=== PATIENT | female | born 1985 | race Caucasian/White ===

== ENCOUNTER 2017-11-22 16:24 | Emergency (ER) | payer SELFPAY ==
[2017-11-22 16:30] VITALS: BP 118/65; BMI 25.6
--- NOTE | 2017-11-22 18:03 | DR.GENAD ---
HPI - Complaint/Symptoms Chief Complaint Doctors Comments: patient states that she had been having aches , and intermittent fever for one week. Her throat is hurting and ear hurs s/p swallowing. Chief Complaint:: "ear and throat hurting for a week" - Source History Provided: Patient - Mode of Arrival Mode of Arrival: Ambulatory - Timing Onset of Chief Complaint: 11/15/17 PMH - PMH Past Medical History: No Past Surgical History: Yes Surgical History: Past Surgical History Comment: c section, D/C - Family History History of Family Medical Conditions: Yes Family Medical History: Diabetes Mellitus, Heart Failure, Hypertension - Social History Does patient currently use any type of tobacco product: No Have you used tobacco products in the last 12 months: No Type of Tobacco Use: None Does any household member use tobacco: No Alcohol Use: None Do you use any recreational Drugs:: No Lives With: Family Lives Where: Home - infectious screening In the last 2 months have you had wt loss of >10#?: NO Have you had fever, night sweats or hemotysis?: No Have you traveled outside the country in the last 6 months?: No Isolation: Standard ROS - Review of Systems Eyes: No Symptoms Reported ENTM: No Symptoms Reported Respiratoy: No Symptoms Reported Cardiovascular: No Symptoms Reported Gastrointestinal/Abdominal: No Symptoms Reported Genitourinary: No Symptoms Reported Neurological: No Symptoms Reported Musculoskeletal: No Symptoms Reported Integumentary: No Symptoms Reported Hematologic/Lymphatic: No Symptoms Reported Endocrine: No Symptoms Reported Psychiatric: No Symptoms Reported All Other Systems: Reviewed and Negative PE - Vital Signs Vitals: Temperature 98.5 F Pulse Rate 86 Respiratory Rate 18 Blood Pressure 118/65 O2 Sat by Pulse Oximetry 100 - General General Appearance: Alert, In No Apparent Distress - Head Head Exam: Normal Inspection, Atraumatic - Eyes Eye exam: Normal Appearance, PERRL, EOMI - ENT ENT Exam: Normal Exam External Ear Exam: Normal External Inspection TM/Canal Exam: Bilateral Normal Nose Exam: Normal Nose Exam Mouth Exam: Normal Inspection Throat Exam: Normal Inspection, Tonsillar Erythema - Neck Neck Exam: Normal Inspection, Full ROM, Tenderness (bilateral tonsils) - Chest Chest Inspection: Normal Inspection - Respiratory Respiratory Exam: Normal Lung Sounds Bilat Respiratory Exam: Bilateral Clear to Auscultation - Cardiovascular Cardiovascular Exam: Regular Rate, Normal Rhythm - Abdominal Exam Abdominal Exam: Normal Inspection, Normal Bowel Sounds, Guarding. negative: Tenderness, Rebound, Pulsatile Mass Abdominal Tenderness: negative: RUQ, RLQ, LUQ, LLQ, Epigastrium, Suprapubic, Diffuse, Mild, Moderate, Severe, Other - Extremities Extremities Exam: Normal Inspection, Full ROM - Back Back Exam: Normal Inspection, Full ROM - Neurologic Neurological Exam: Alert, Oriented X3, CN II-XII Intact - Psychiatric Psychiatric Exam: Normal Affect - Skin Skin Exam: Warm, Dry, Intact Course - Reevaluation 1st: Unchanged ROR - Labs Reviewed Laboratory Results Reviewed?: Yes (influenza neg, strep negative) Laboratory: Influenza Type A (PCR) Negative (NEGATIVE) 11/22/17 18:05 Influenza Type B (PCR) Negative (NEGATIVE) 11/22/17 18:05 S. pyogenes (TEM-PCR) Not detected (NOT DETECT) 11/22/17 18:05 - Diagnosis Discharge Problem: Upper respiratory infection Qualifiers: URI type: unspecified viral URI Qualified Code(s): J06.9 - Acute upper respiratory infection, unspecified - Discharge Plan Condition: Stable - Follow ups/Referrals Follow ups/Referrals: NFD,None [Primary Care Provider] - 3 days - Instructions
== END 2017-11-22 19:27 | disposition home or self-care (01) ==
LOC: ER 16:33
DX: J06.9 Acute upper respiratory infection, unspecified (principal)
CPT/HCPCS: 87502; 87651; 99282

== ENCOUNTER 2018-01-17 11:11 | Emergency (ER) | payer SELFPAY ==
[2018-01-17 11:16] VITALS: BP 114/71; BMI 24.7
--- NOTE | 2018-01-17 11:43 | DR.NAUSEAF ---
HPI - Time Seen Time seen: 11:40 - Primary Care Physician Primary Care Physician: MENDY - HPI Comment HPI Comment: GETTING WORSE. - Complaints Chief Complaint Doctors Comments: N/V ANOREXIA AND THROAT PAIN TIMES ONE DAY. Chief Complaint:: NAUSEA AND VOMITING. NOT ABLE TO EAT AND THROAT HURTING - Reviewed Nurses Notes Reviewed: Yes - Source History Provided: Patient - Mode of Arrival Mode of Arrival: Ambulatory - Timing Onset of Chief Complaint: 01/16/18 - Context Onset: Spontaneous Recent: None : No History of: None - Quality Quality: Bilious - Associated Signs and Symptoms Abdominal Pain Location: Diffuse Symptoms: Abdominal Pain PMH - PMH Past Medical History: No Past Surgical History: Yes Surgical History: Past Surgical History Comment: DNC - Family History History of Family Medical Conditions: Yes Family Medical History: Diabetes Mellitus, Heart Failure, Hypertension - Social History Does any household member use tobacco: Yes Alcohol Use: None Do you use any recreational Drugs:: No Lives With: Other Lives Where: Home - infectious screening In the last 2 months have you had wt loss of >10#?: NO Have you had fever, night sweats or hemotysis?: No Have you traveled outside the country in the last 6 months?: No Isolation: Standard ROS - Review of Systems Constitutional: No Symptoms Reported Eyes: No Symptoms Reported ENTM: Throat Pain. negative: Ear Pain, Nose Discharge, Nose Congestion Respiratoy: No Symptoms Reported Cardiovascular: No Symptoms Reported Gastrointestinal/Abdominal: Diarrhea, Nausea, Vomiting Genitourinary: No Symptoms Reported Neurological: No Symptoms Reported Musculoskeletal: No Symptoms Reported Integumentary: No Symptoms Reported Hematologic/Lymphatic: No Symptoms Reported Endocrine: No Symptoms Reported All Other Systems: Reviewed and Negative PE - Vital Signs Vitals: Temperature 98.3 F Pulse Rate 70 Respiratory Rate 20 Blood Pressure 114/71 O2 Sat by Pulse Oximetry 100 - General Limitations: No Limitations General Appearance: Alert - Head Head Exam: Normal Inspection - Eyes Eye exam: Normal Appearance - ENT ENT Exam: Normal External Ear Exam - Neck Neck Exam: Normal Inspection - Chest Chest Inspection: Symmetric Chest Wall Rise - Respiratory Respiratory Exam: Normal Lung Sounds Bilat Respiratory Exam: Bilateral Clear to Auscultation - Cardiovascular Cardiovascular Exam: Regular Rate, Normal Rhythm, Normal Heart Sounds - Abdominal Exam Abdominal Exam: Normal Bowel Sounds, Soft. negative: Tenderness - Rectal Rectal Exam: Deferred - External Exam: Female: Deferred : Speculum Exam (Female): Deferred : Bimanual Exam (female): Deferred - Back Back Exam: Normal Inspection - Neurologic Neurological Exam: Alert, Oriented X3 - Psychiatric Psychiatric Exam: Normal Affect, Normal Mood - Skin Skin Exam: Normal Color MDM - Differential Diagnosis Differential Diagnosis: Considerations may Include:: Bowel Obstruction, Gastroenteritis, Urinary Tract Infection, Urolithiasis Course - Treatment Treatment: SEE ORDERS. - Education/Counseling Education/Counseling: Patient, Education Educated On: Diagnosis, Needs for Follow Up ROR - Labs Reviewed Laboratory Results Reviewed?: Yes Result Diagrams: 01/17/18 11:56 01/17/18 11:56 Laboratory: WBC 6.7 X10^3/uL (3.6-10.0) 01/17/18 11:56 RBC 4.14 X10^6/uL (3.5-5.4) 01/17/18 11:56 Hgb 11.0 g/dL (12.0-16.0) L 01/17/18 11:56 Hct 32.8 % (36.0-47.0) L 01/17/18 11:56 MCV 79.3 fL (80.0-100.0) L 01/17/18 11:56 MCH 26.5 pg (27.0-34.0) L 01/17/18 11:56 MCHC 33.4 g/dL (33.0-35.0) 01/17/18 11:56 RDW 13.9 % (11.6-16.5) 01/17/18 11:56 Plt Count 299 X10^3/uL (150.0-450.0) 01/17/18 11:56 MPV 7.6 fL (7.4-11.0) 01/17/18 11:56 Neut % (Auto) 52.7 % (42.0-75.0) 01/17/18 11:56 Lymph % (Auto) 37.1 % (21.0-51.0) 01/17/18 11:56 [place] % (Auto) 8.3 % (0.0-13.0) 01/17/18 11:56 Eos % (Auto) 1.3 % (0.9-2.9) 01/17/18 11:56 Baso % (Auto) 0.6 % (0.2-1.0) 01/17/18 11:56 Neut # (Auto) 3.5 x10^3/uL (2.2-4.8) 01/17/18 11:56 Lymph # (Auto) 2.5 X10^3/uL (1.3-2.9) 01/17/18 11:56 [place] # (Auto) 0.5 x10^3/uL (0.3-0.8) 01/17/18 11:56 Eos # (Auto) 0.1 x10^3/uL (0.0-0.2) 01/17/18 11:56 Baso # (Auto) 0.0 X10^3/uL (0.0-0.1) 01/17/18 11:56 Absolute Nucleated RBC 0.0 /100WBC 01/17/18 11:56 Sodium 140 mmol/L (136-145) 01/17/18 11:56 Corrected Sodium TNP 01/17/18 11:56 Potassium 3.8 mmol/L (3.5-5.1) 01/17/18 11:56 Chloride 104 mmol/L (98-107) 01/17/18 11:56 Carbon Dioxide 28.5 mmol/L (21-32) 01/17/18 11:56 BUN 9 mg/dL (7-18) 01/17/18 11:56 Creatinine 0.75 mg/dL (0.55-1.02) 01/17/18 11:56 Est GFR (MDRD) Af Amer > 60 (>60) 01/17/18 11:56 Est GFR (MDRD) Non-Af > 60 (>60) 01/17/18 11:56 Glucose 93 mg/dL (65-99) 01/17/18 11:56 Calcium 8.3 mg/dL (8.5-10.1) L 01/17/18 11:56 Corrected Calcium TNP 01/17/18 11:56 Total Bilirubin 0.20 mg/dL (0.2-1.0) 01/17/18 11:56 AST 20 Units/L (15-37) 01/17/18 11:56 ALT 13 Units/L (12-78) 01/17/18 11:56 Alkaline Phosphatase 69 Units/L (46-116) 01/17/18 11:56 Total Protein 8.1 g/dL (6.4-8.2) 01/17/18 11:56 Albumin 3.9 g/dL (3.4-5.0) 01/17/18 11:56 Globulin 4.2 g/dL (2.5-4.5) 01/17/18 11:56 Albumin/Globulin Ratio 0.9 Ratio (1.1-2.1) L 01/17/18 11:56 Specimen Type Clean catch urine 01/17/18 12:11 Urine Color Yellow (YELLOW) 01/17/18 12:11 Urine Appearance Hazy (CLEAR) 01/17/18 12:11 Urine pH 5.0 (5.0 - 8.0) 01/17/18 12:11 Ur Specific [place] 1.030 (1.000-1.030) 01/17/18 12:11 Urine Protein Negative (NEGATIVE) 01/17/18 12:11 Urine Glucose (UA) Negative (NEGATIVE) 01/17/18 12:11 Urine Ketones Negative (NEGATIVE) 01/17/18 12:11 Urine Occult Blood 1+ (NEGATIVE) 01/17/18 12:11 Urine Nitrite Negative (NEGATIVE) 01/17/18 12:11 Urine Bilirubin Negative (NEGATIVE) 01/17/18 12:11 Urine Urobilinogen Normal (NORMAL) 01/17/18 12:11 Ur Leukocyte Esterase 1+ (NEGATIVE) 01/17/18 12:11 Urine RBC 0-2 /HPF (NONE SEEN) 01/17/18 12:11 Urine WBC 3-5 /HPF (NONE SEEN) 01/17/18 12:11 Ur Squamous Epith Cells Many /HPF (NEGATIVE) 01/17/18 12:11 Amorphous Sediment 2+ /HPF (NEGATIVE) 01/17/18 12:11 Urine Bacteria 1+ /HPF (NEGATIVE) 01/17/18 12:11 Urine Mucus Moderate /HPF (NEGATIVE) 01/17/18 12:11 Ur Culture Indicated? No/not indicated 01/17/18 12:11 - Diagnosis Discharge Problem: Gastroenteritis, Nausea and vomiting in adult patient - Discharge Plan Disposition: HOME, SELF-CARE Condition: Stable Prescriptions: Diphenoxylate/Atropine [Lomotil] 1 tab PO TID #15 tab Ondansetron [Zofran ODT 8 mg] 8 mg PO Q8H PRN #12 tab PRN Reason: Nausea/Vomiting - Follow ups/Referrals Follow ups/Referrals: NFD,None [Primary Care Provider] - 3 days - Instructions Instructions: Viral Gastroenteritis, Adult, [id number], Nausea, Adult, Easy- to-Read Additional Instructions: RETURN TO ED IF WORSE.
[2018-01-17 12:06] LABS: BASOPHILS % (AUTO) 0.6 % (0.2-1.0); EOSINOPHILS # (AUTO) 0.1 x10^3/uL (0.0-0.2); EOSINOPHILS % (AUTO) 1.3 % (0.9-2.9); HEMATOCRIT 32.8 % (36.0-47.0); LYMPHOCYTES # (AUTO) 2.5 X10^3/uL (1.3-2.9); LYMPHOCYTES % (AUTO) 37.1 % (21.0-51.0); MEAN CORPUSCULAR HEMOGLOBIN 26.5 pg (27.0-34.0); MEAN CORPUSCULAR HGB CONC 33.4 g/dL (33.0-35.0); MEAN CORPUSCULAR VOLUME 79.3 fL (80.0-100.0); MEAN PLATELET VOLUME 7.6 fL (7.4-11.0); MONOCYTES # (AUTO) 0.5 x10^3/uL (0.3-0.8); MONOCYTES % (AUTO) 8.3 % (0.0-13.0); NEUTROPHILS # (AUTO) 3.5 x10^3/uL (2.2-4.8); NEUTROPHILS % (AUTO) 52.7 % (42.0-75.0); PLATELET COUNT 299 X10^3/uL (150.0-450.0); RED BLOOD COUNT 4.14 X10^6/uL (3.5-5.4); RED CELL DISTRIBUTION WIDTH 13.9 % (11.6-16.5); WHITE BLOOD COUNT 6.7 X10^3/uL (3.6-10.0)
[2018-01-17 12:17] LABS: BILIRUBIN,URINE NEGATIVE (NEGATIVE); BLOOD/HEMOGLOBIN,URINE 1+ (NEGATIVE); GLUCOSE, URINE NEGATIVE (NEGATIVE); KETONES,URINE NEGATIVE (NEGATIVE); LEUKOCYTE ESTERASE ,URINE 1+ (NEGATIVE); NITRITES,URINE NEGATIVE (NEGATIVE); PROTEIN,URINE NEGATIVE (NEGATIVE); UROBILINOGEN,URINE NORMAL (NORMAL)
[2018-01-17 12:19] LABS: ALANINE AMINOTRANSFERASE 13 Units/L (12-78); ALBUMIN 3.9 g/dL (3.4-5.0); ALKALINE PHOSPHATASE 69 Units/L (46-116); ASPARTATE AMINO TRANSFERASE 20 Units/L (15-37); BLOOD UREA NITROGEN 9 mg/dL (7-18); CALCIUM 8.3 mg/dL (8.5-10.1); CARBON DIOXIDE 28.5 mmol/L (21-32); CHLORIDE 104 mmol/L (98-107); CREATININE 0.75 mg/dL (0.55-1.02); SODIUM 140 mmol/L (136-145); TOTAL PROTEIN 8.1 g/dL (6.4-8.2); eGFR BLACK RACES > 60 (>60); eGFR NON BLACK RACES > 60 (>60)
[2018-01-17 12:28] LABS: APPEARANCE,URINE HAZY (CLEAR); COLOR,URINE YELLOW (YELLOW)
[2018-01-17 12:35] LABS: AMORPHOUS SEDIMENT,UR 2+ /HPF (NEGATIVE); BACTERIA,URINE 1+ /HPF (NEGATIVE); MUCUS,URINE MODERATE /HPF (NEGATIVE); RBC,URINE 0-2 /HPF (NONE SEEN); SQUAMOUS EPITHELIAL CELL,UR MANY /HPF (NEGATIVE)
== END 2018-01-17 13:05 | disposition home or self-care (01) ==
LOC: ER 11:23
DX: K52.89 Other specified noninfective gastroenteritis and colitis (principal); R11.2 Nausea with vomiting, unspecified
CPT/HCPCS: 36415; 80053; 81001; 85025; 99282